=== PATIENT | female | born 1980 | race Native Hawaiian/Other Pacific Islander ===

== ENCOUNTER 2018-08-02 23:00 | Emergency (ER) | payer OTHER ==
[~2018-08-02] VITALS: Ht 170.2 cm; Wt 140.6 kg
[~2018-08-02 23:00] MED LIST: ADIPEX PO; ALLERCLEAR10 MG OR; ASTEPRO0.15 %; CELEXA40 MG PO; HYDR25TA60 PO; LORA10TA3 PO; ORTHO TRI1 PO; SINGULAIR10 MG PO
[2018-08-02 23:47] VITALS: BP 141/90; TEMP 97.7
== END 2018-08-02 23:51 | disposition home or self-care (01) ==
LOC: ED 23:00
DX: H66.91 Otitis media, unspecified, right ear (principal)
CPT/HCPCS: 99282

== ENCOUNTER 2020-07-01 10:03 | Outpatient (CLI) | payer BC, OTHER | END 2020-07-01 23:59 | disposition home or self-care (01) | LOC: INF 10:03 | PROVIDERS: ATTEND Internal Medicine | DX: Z23 Encounter for immunization (principal) | CPT/HCPCS: 96372 ==

== ENCOUNTER 2020-07-29 09:16 | Outpatient (CLI) | payer BC, OTHER | END 2020-07-29 21:41 | disposition home or self-care (01) | LOC: INF 09:16 | PROVIDERS: ATTEND Internal Medicine | DX: Z23 Encounter for immunization (principal) | CPT/HCPCS: 96372 ==

== ENCOUNTER 2022-08-16 02:15 | Emergency (ER) | payer BC, OTHER ==
[~2022-08-16] VITALS: Ht 167.6 cm; Wt 149.7 kg
[2022-08-16 03:50] VITALS: BP 167/97; TEMP 98.5
== END 2022-08-16 03:50 | disposition home or self-care (01) ==
LOC: ED 02:15
DX: T78.1XXA Other adverse food reactions, not elsewhere classified, initial encounter (principal); R22.0 Localized swelling, mass and lump, head; X58.XXXA Exposure to other specified factors, initial encounter; Y92.89 Other specified places as the place of occurrence of the external cause
CPT/HCPCS: 96372; 99282; J2930

== ENCOUNTER 2023-03-17 13:04 | Outpatient (CLI) | payer BC, OTHER | END 2023-03-17 19:03 | disposition home or self-care (01) | LOC: RAD 13:04 | PROVIDERS: ATTEND Registered Nurse | DX: R60.0 Localized edema (principal); M79.672 Pain in left foot ==